=== PATIENT | female | born 1955 | race African-American/Black ===

== ENCOUNTER 2024-05-09 09:12 | Inpatient (IN) | payer OTHER ==
[2024-05-09 11:15] VITALS: BMI 64.0
[2024-05-09 12:23] LABS: BASO % 0.3 % (0-2.0); EOS % 0.3 % (0-4.5); HEMATOCRIT 28.8 % (32.4-45.2); HEMOGLOBIN 9.7 GM/dL (10.7-15.3); LYMPH % 18.7 % (8-40); MCH 39.6 pg (25.7-33.7); MCHC 33.8 g/dl (32.0-36.0); MEAN CELL VOLUME 117.3 fl (80-96); MEAN PLT VOLUME 6.5 fl (7.5-11.1); MONO % 12.9 % (3.8-10.2); NEUT % 67.8 % (42.8-82.8); PLATELET COUNT 391 10^3/uL (134-434); RBC 2.45 M/mm3 (3.60-5.2); RDW 14.9 % (11.6-15.6)
[2024-05-09] MEDS ORDERED: VANCOMYCIN 1 GRAM (PRE-DOCKED) 1,000 MG/250 ML BAG IVPB ONE (12:26)
[2024-05-09] MEDS: VANCOMYCIN 1,000 MG in DEXTROSE 5%-WATER - 250 ML IVPB ONE (12:38)
[2024-05-09 13:01] LABS: ANISOCYTOSIS 2+; MACROCYTOSIS 2+; TEAR DROP CELLS 1+
[2024-05-09 13:46] LABS: POTASSIUM 5.1 mmol/L (3.5-5.1)
[2024-05-09 13:48] LABS: ALBUMIN 2.8 g/dl (3.4-5.0); BLOOD UREA NITROGEN 8.8 mg/dL (7-18); CALCIUM 8.8 mg/dL (8.5-10.1)
[2024-05-09 13:52] LABS: CREATININE 0.6 mg/dL (0.55-1.3)
[2024-05-09 13:54] LABS: BILIRUBIN,TOTAL 0.6 mg/dL (0.2-1); TOT PROT 7.5 g/dl (6.4-8.2)
[2024-05-10] MEDS: CEFAZOLIN SODIUM 2 GM in DEXTROSE 5%-WATER 100 ML IVPB SCH (03:10)
[2024-05-10] MEDS ORDERED: ACETAMINOPHEN 325 MG TABLET (FP) PO PRN (07:40)
[2024-05-10] MEDS: KETOROLAC TROMETHAMINE 15 MG/ML VIAL IVPUSH PRN (09:07)
[2024-05-10] MEDS: GABAPENTIN 100 MG CAPSULE PO SCH (09:09)
[2024-05-10 09:56] LABS: BASO % 0.1 % (0-2.0); EOS % 0.4 % (0-4.5); HEMATOCRIT 27.5 % (32.4-45.2); HEMOGLOBIN 9.1 GM/dL (10.7-15.3); LYMPH % 18.7 % (8-40); MCH 38.6 pg (25.7-33.7); MCHC 33.2 g/dl (32.0-36.0); MEAN CELL VOLUME 116.4 fl (80-96); MEAN PLT VOLUME 6.7 fl (7.5-11.1); MONO % 15.2 % (3.8-10.2); NEUT % 65.6 % (42.8-82.8); PLATELET COUNT 366 10^3/uL (134-434); RBC 2.36 M/mm3 (3.60-5.2); RDW 14.5 % (11.6-15.6); RETICULOCYTES 0.92 % (0.5-1.5); WHITE BLOOD COUNT 9.5 K/mm3 (4.0-10.0)
[2024-05-10] MEDS: SERTRALINE HCL 50 MG TABLET (FP) PO SCH (10:12)
[2024-05-10 10:20] LABS: POTASSIUM 3.4 mmol/L (3.5-5.1)
[2024-05-10 10:28] LABS: PHOSPHOROUS 2.4 mg/dL (2.5-4.9)
[2024-05-10 10:29] LABS: BLOOD UREA NITROGEN 4.2 mg/dL (7-18); CALCIUM 8.2 mg/dL (8.5-10.1); MAGNESIUM 1.8 mg/dL (1.8-2.4)
[2024-05-10 10:30] LABS: ALBUMIN 2.6 g/dl (3.4-5.0)
[2024-05-10 10:33] LABS: CREATININE 0.4 mg/dL (0.55-1.3)
[2024-05-10 10:40] LABS: BILIRUBIN,TOTAL 0.5 mg/dL (0.2-1)
[2024-05-10 17:04] LABS: HIV INTERPRETATION NEGATIVE (NEGATIVE)
[2024-05-10] MEDS: ENOXAPARIN NA (PORCINE) 40 MG/0.4 ML DISP.SYRIN SQ SCH (18:07)
[2024-05-10] MEDS: traMADol HCL 50 MG TABLET PO PRN (21:21)
[2024-05-11] MEDS: diphenhydrAMINE HCL 25 MG CAPSULE (FP) PO ONE (02:35)
[2024-05-11 08:57] LABS: BASO % 0.2 % (0-2.0); EOS % 1.6 % (0-4.5); HEMATOCRIT 28.2 % (32.4-45.2); HEMOGLOBIN 9.5 GM/dL (10.7-15.3); LYMPH % 21.8 % (8-40); MCHC 33.6 g/dl (32.0-36.0); MEAN CELL VOLUME 116.3 fl (80-96); MEAN PLT VOLUME 6.7 fl (7.5-11.1); MONO % 11.3 % (3.8-10.2); NEUT % 65.1 % (42.8-82.8); PLATELET COUNT 376 10^3/uL (134-434); RBC 2.42 M/mm3 (3.60-5.2); RDW 14.2 % (11.6-15.6)
[2024-05-11] MEDS: ACETAMINOPHEN 325 MG TABLET (FP) PO PRN (09:10)
[2024-05-11 09:17] LABS: POTASSIUM 3.6 mmol/L (3.5-5.1)
[2024-05-11 09:19] LABS: ALBUMIN 2.6 g/dl (3.4-5.0); CALCIUM 8.4 mg/dL (8.5-10.1)
[2024-05-11 09:20] LABS: BLOOD UREA NITROGEN 6.2 mg/dL (7-18)
[2024-05-11 09:23] LABS: BILIRUBIN,TOTAL 0.6 mg/dL (0.2-1); CREATININE 0.5 mg/dL (0.55-1.3); PHOSPHOROUS 2.6 mg/dL (2.5-4.9); TOT PROT 7.2 g/dl (6.4-8.2)
[2024-05-12] MEDS: diphenhydrAMINE HCL 25 MG CAPSULE (FP) PO ONE (03:11)
[2024-05-12 08:27] LABS: POTASSIUM 3.8 mmol/L (3.5-5.1)
[2024-05-12 08:29] LABS: HEMOGLOBIN 9.4 GM/dL (10.7-15.3); RBC 2.47 M/mm3 (3.60-5.2); WHITE BLOOD COUNT 11.1 K/mm3 (4.0-10.0)
[2024-05-12 08:30] LABS: BASO % 0.1 % (0-2.0); EOS % 0.3 % (0-4.5); LYMPH % 17.6 % (8-40); MCHC 32.4 g/dl (32.0-36.0); MEAN CELL VOLUME 117.4 fl (80-96); MEAN PLT VOLUME 6.8 fl (7.5-11.1); MONO % 15.4 % (3.8-10.2); NEUT % 66.6 % (42.8-82.8); PLATELET COUNT 391 10^3/uL (134-434); RDW 14.3 % (11.6-15.6)
[2024-05-12 08:40] LABS: ALBUMIN 2.4 g/dl (3.4-5.0); BLOOD UREA NITROGEN 4.1 mg/dL (7-18); CALCIUM 8.3 mg/dL (8.5-10.1)
[2024-05-12 08:43] LABS: CREATININE 0.5 mg/dL (0.55-1.3)
[2024-05-12 08:45] LABS: BILIRUBIN,TOTAL 0.7 mg/dL (0.2-1); TOT PROT 7.2 g/dl (6.4-8.2)
[2024-05-12] MEDS ORDERED: diphenhydrAMINE HCL 50 MG CAPSULE PO PRN (08:53)
[2024-05-12] MEDS: KETOROLAC TROMETHAMINE 15 MG/ML VIAL IVPUSH ONE (10:04)
[2024-05-12] MEDS: diphenhydrAMINE HCL 25 MG CAPSULE (FP) PO PRN (10:19)
[2024-05-12] MEDS: oxyCODONE HCL 5 MG TABLET PO PRN (15:06)
[2024-05-12] MEDS: PIPERACILLIN/TAZOB 4.5 GM 4.5 GM in DEXTROSE 5%-WATER 100 ML IVPB SCH (19:07)
[2024-05-13] MEDS: ACETAMINOPHEN 1000 MG/100 ML BAG IVPB ONE (04:20)
[2024-05-13] MEDS: VANCOMYCIN/WATER FOR INJ (PEG) 1,000 MG/250 ML BAG IVPB ONE (09:09)
[2024-05-13 09:12] LABS: BASO % 0.1 % (0-2.0); EOS % 0.5 % (0-4.5); HEMATOCRIT 28.6 % (32.4-45.2); HEMOGLOBIN 9.5 GM/dL (10.7-15.3); LYMPH % 17.1 % (8-40); MCH 38.3 pg (25.7-33.7); MCHC 33.2 g/dl (32.0-36.0); MEAN CELL VOLUME 115.4 fl (80-96); MEAN PLT VOLUME 6.9 fl (7.5-11.1); MONO % 13.6 % (3.8-10.2); NEUT % 68.7 % (42.8-82.8); PLATELET COUNT 416 10^3/uL (134-434); RBC 2.48 M/mm3 (3.60-5.2); RDW 13.9 % (11.6-15.6); WHITE BLOOD COUNT 13.8 K/mm3 (4.0-10.0)
[2024-05-13] MEDS: ACETAMINOPHEN 325 MG TABLET (FP) PO PRN (10:33)
[2024-05-13] MEDS ORDERED: KETOROLAC TROMETHAMINE 10 MG TABLET PO PRN (12:50)
[2024-05-13] MEDS: KETOROLAC TROMETHAMINE 15 MG/ML VIAL IVPUSH ONE (13:21)
[2024-05-13] MEDS: FUROSEMIDE 40 MG/4 ML INJECTABLE VIAL IVPUSH SCH (13:21)
[2024-05-13 15:47] LABS: EPI CELLS >36 /uL (0-25.1); HYALINE CASTS 6 /uL (0-3.1); PH,URINE 5.5 (5.0-8.0); URINE APPEARANCE CLEAR; URINE BACTERIA 5 /uL (0-1359); URINE BILIRUBIN NEGATIVE (NEGATIVE); URINE COLOR YELLOW; URINE GLUCOSE (UA) NEGATIVE (NEGATIVE); URINE KETONE NEGATIVE (NEGATIVE); URINE LEUK ESTERASE 1+ (NEGATIVE); URINE NITRITE NEGATIVE (NEGATIVE); URINE PROTEIN TRACE (NEGATIVE); URINE RBC 23 /uL (0-23.9); URINE WBC 52 /uL (0-25.8)
[2024-05-13] MEDS: POLYETHYLENE GLYCOL (HEALTHYLAX) 3350 17 GM PACKET PO SCH (21:11)
[2024-05-13] MEDS: SENNOSIDES 8.6MG TABLET (FP) PO SCH (21:11)
[2024-05-14 10:20] LABS: BASO % 0.2 % (0-2.0); EOS % 0.9 % (0-4.5); HEMATOCRIT 26.9 % (32.4-45.2); HEMOGLOBIN 8.9 GM/dL (10.7-15.3); LYMPH % 12.9 % (8-40); MCH 38.4 pg (25.7-33.7); MCHC 33.2 g/dl (32.0-36.0); MEAN CELL VOLUME 115.6 fl (80-96); MEAN PLT VOLUME 7.1 fl (7.5-11.1); MONO % 13.3 % (3.8-10.2); NEUT % 72.7 % (42.8-82.8); PLATELET COUNT 394 10^3/uL (134-434); RBC 2.33 M/mm3 (3.60-5.2); RDW 13.9 % (11.6-15.6)
[2024-05-14] MEDS: IBUPROFEN 400 MG TABLET (FP) PO PRN (17:32)
[2024-05-14 20:02] LABS: ANISOCYTOSIS 2+; MACROCYTOSIS 2+
[2024-05-15 09:19] LABS: BASO % 0.1 % (0-2.0); EOS % 1.8 % (0-4.5); LYMPH % 14.2 % (8-40); MCH 37.8 pg (25.7-33.7); MCHC 32.2 g/dl (32.0-36.0); MEAN CELL VOLUME 117.5 fl (80-96); NEUT % 69.9 % (42.8-82.8); PLATELET COUNT 373 10^3/uL (134-434); RBC 2.38 M/mm3 (3.60-5.2); WHITE BLOOD COUNT 12.4 K/mm3 (4.0-10.0)
[2024-05-15] MEDS ORDERED: HYDROCORTISONE 0.5% TOPICAL CREAM 30 GM TUBE TP PRN (09:23)
[2024-05-15 09:45] LABS: POTASSIUM 4.2 mmol/L (3.5-5.1)
[2024-05-15 09:55] LABS: ALBUMIN 2.1 g/dl (3.4-5.0); CALCIUM 8.4 mg/dL (8.5-10.1)
[2024-05-15 09:57] LABS: CREATININE 0.5 mg/dL (0.55-1.3)
[2024-05-15 09:59] LABS: BILIRUBIN,TOTAL 0.9 mg/dL (0.2-1); TOT PROT 7.4 g/dl (6.4-8.2)
[2024-05-15 10:22] LABS: ERYTHROCYTE SEDIMENTATION RATE > 120 mm/hr (0-30)
[2024-05-15] MEDS: HYDROmorphone HCL CARPU-JECT 2 MG/1 ML DISP.SYRIN IVPB ONE (11:22)
[2024-05-16 10:20] LABS: BASO % 0.2 % (0-2.0); EOS % 0.8 % (0-4.5); HEMATOCRIT 26.7 % (32.4-45.2); HEMOGLOBIN 8.7 GM/dL (10.7-15.3); MCH 38.5 pg (25.7-33.7); MCHC 32.5 g/dl (32.0-36.0); MEAN CELL VOLUME 118.3 fl (80-96); MEAN PLT VOLUME 7.2 fl (7.5-11.1); MONO % 17.1 % (3.8-10.2); NEUT % 66.9 % (42.8-82.8); PLATELET COUNT 369 10^3/uL (134-434); RBC 2.26 M/mm3 (3.60-5.2); RDW 13.8 % (11.6-15.6); WHITE BLOOD COUNT 10.3 K/mm3 (4.0-10.0)
[2024-05-16 10:45] LABS: POTASSIUM 4.2 mmol/L (3.5-5.1)
[2024-05-16 10:54] LABS: ALBUMIN 2.1 g/dl (3.4-5.0); CALCIUM 8.6 mg/dL (8.5-10.1)
[2024-05-16 10:55] LABS: BLOOD UREA NITROGEN 5.6 mg/dL (7-18); MAGNESIUM 2.1 mg/dL (1.8-2.4)
[2024-05-16 10:58] LABS: CREATININE 0.6 mg/dL (0.55-1.3); PHOSPHOROUS 2.7 mg/dL (2.5-4.9); TOT PROT 7.4 g/dl (6.4-8.2)
[2024-05-16 10:59] LABS: BILIRUBIN,TOTAL 0.9 mg/dL (0.2-1)
[2024-05-16] MEDS ORDERED: ACETAMINOPHEN 1000 MG/100 ML BAG IVPB SCH (11:45)
[2024-05-16 13:24] LABS: ANISOCYTOSIS 2+; MACROCYTOSIS 2+
[2024-05-16] MEDS ORDERED: IBUPROFEN 400 MG TABLET (FP) PO SCH ×2 (15:45→16:45)
[2024-05-16] MEDS: ACETAMINOPHEN 1000 MG/100 ML BAG IVPB SCH (17:40)
[2024-05-16] MEDS: IBUPROFEN 600 MG TABLET (FP) PO SCH (22:55)
[2024-05-16] MEDS: ENOXAPARIN NA (PORCINE) 40 MG/0.4 ML DISP.SYRIN SQ SCH (22:55)
[2024-05-17 09:54] LABS: BASO % 0.2 % (0-2.0); EOS % 1.5 % (0-4.5); HEMATOCRIT 25.9 % (32.4-45.2); HEMOGLOBIN 8.5 GM/dL (10.7-15.3); LYMPH % 14.9 % (8-40); MCH 37.9 pg (25.7-33.7); MCHC 32.9 g/dl (32.0-36.0); MEAN CELL VOLUME 115.4 fl (80-96); MEAN PLT VOLUME 6.9 fl (7.5-11.1); MONO % 12.2 % (3.8-10.2); NEUT % 71.2 % (42.8-82.8); PLATELET COUNT 335 10^3/uL (134-434); RBC 2.25 M/mm3 (3.60-5.2); RDW 14.1 % (11.6-15.6); WHITE BLOOD COUNT 11.2 K/mm3 (4.0-10.0)
[2024-05-17 10:12] LABS: CALCIUM 8.5 mg/dL (8.5-10.1); POTASSIUM 3.8 mmol/L (3.5-5.1)
[2024-05-17 10:14] LABS: ALBUMIN 2.2 g/dl (3.4-5.0); BLOOD UREA NITROGEN 4.6 mg/dL (7-18); MAGNESIUM 2.2 mg/dL (1.8-2.4)
[2024-05-17 10:17] LABS: CREATININE 0.5 mg/dL (0.55-1.3); PHOSPHOROUS 3.3 mg/dL (2.5-4.9)
[2024-05-17 10:18] LABS: BILIRUBIN,TOTAL 0.7 mg/dL (0.2-1); TOT PROT 7.1 g/dl (6.4-8.2)
[2024-05-17 13:16] LABS: HIV INTERPRETATION NEGATIVE (NEGATIVE)
[2024-05-17 20:37] VITALS: RESP 18
[2024-05-18] MEDS: oxyCODONE HCL 5 MG TABLET PO PRN (01:10)
[2024-05-18 07:10] LABS: HOMOCYSTINE-PLASMA OR SERUM 8.9 umol/L (0.0-17.2)
[2024-05-18 09:34] LABS: BASO % 0.3 % (0-2.0); EOS % 2.3 % (0-4.5); HEMATOCRIT 25.4 % (32.4-45.2); HEMOGLOBIN 8.7 GM/dL (10.7-15.3); LYMPH % 16.5 % (8-40); MCH 39.3 pg (25.7-33.7); MCHC 34.2 g/dl (32.0-36.0); MEAN CELL VOLUME 115.1 fl (80-96); MEAN PLT VOLUME 7.2 fl (7.5-11.1); MONO % 11.9 % (3.8-10.2); PLATELET COUNT 334 10^3/uL (134-434); RDW 13.9 % (11.6-15.6); WHITE BLOOD COUNT 9.5 K/mm3 (4.0-10.0)
[2024-05-18 09:46] LABS: POTASSIUM 3.7 mmol/L (3.5-5.1)
[2024-05-18 09:59] LABS: CALCIUM 8.4 mg/dL (8.5-10.1)
[2024-05-18 10:02] LABS: ALBUMIN 2.1 g/dl (3.4-5.0); BLOOD UREA NITROGEN 3.9 mg/dL (7-18); CREATININE 0.5 mg/dL (0.55-1.3)
[2024-05-18 10:05] LABS: BILIRUBIN,TOTAL 0.6 mg/dL (0.2-1); TOT PROT 7.2 g/dl (6.4-8.2)
[2024-05-18] MEDS: FUROSEMIDE 40 MG/4 ML INJECTABLE VIAL IVPUSH ONE (10:05)
[2024-05-18] MEDS ORDERED: PIPERACILLIN/TAZOB 4.5 GM 4.5 GM in DEXTROSE 5%-WATER 100 ML IVPB SCH (21:00)
[2024-05-18] MEDS: PIPERACILLIN/TAZOB 4.5 GM 4.5 GM in DEXTROSE 5%-WATER 100 ML IVPB SCH (22:10)
[2024-05-19] MEDS: FUROSEMIDE 40 MG/4 ML INJECTABLE VIAL IVPUSH SCH (10:24)
[2024-05-19 10:44] LABS: HEMATOCRIT 27.5 % (32.4-45.2); HEMOGLOBIN 9.2 GM/dL (10.7-15.3); MCH 38.4 pg (25.7-33.7); MCHC 33.6 g/dl (32.0-36.0); MEAN CELL VOLUME 114.5 fl (80-96); MEAN PLT VOLUME 7.4 fl (7.5-11.1); PLATELET COUNT 363 10^3/uL (134-434); RDW 14.4 % (11.6-15.6); WHITE BLOOD COUNT 8.1 K/mm3 (4.0-10.0)
[2024-05-19 11:16] LABS: POTASSIUM 3.7 mmol/L (3.5-5.1)
[2024-05-19 11:24] LABS: ALBUMIN 2.2 g/dl (3.4-5.0); BLOOD UREA NITROGEN 5.4 mg/dL (7-18); CREATININE 0.5 mg/dL (0.55-1.3)
[2024-05-19 11:25] LABS: BILIRUBIN,TOTAL 0.6 mg/dL (0.2-1)
[2024-05-19 11:26] LABS: CALCIUM 8.7 mg/dL (8.5-10.1)
[2024-05-19 11:33] LABS: TOT PROT 7.5 g/dl (6.4-8.2)
[2024-05-19 13:05] LABS: ANISOCYTOSIS 0; MACROCYTOSIS 2+
[2024-05-20 10:36] LABS: BASO % 0.5 % (0-2.0); EOS % 3.4 % (0-4.5); HEMATOCRIT 27.5 % (32.4-45.2); HEMOGLOBIN 9.5 GM/dL (10.7-15.3); LYMPH % 15.4 % (8-40); MCHC 34.5 g/dl (32.0-36.0); MEAN CELL VOLUME 115.9 fl (80-96); MEAN PLT VOLUME 7.3 fl (7.5-11.1); MONO % 10.7 % (3.8-10.2); PLATELET COUNT 332 10^3/uL (134-434); RBC 2.37 M/mm3 (3.60-5.2); RDW 14.4 % (11.6-15.6); WHITE BLOOD COUNT 6.9 K/mm3 (4.0-10.0)
[2024-05-20 10:44] LABS: POTASSIUM 3.4 mmol/L (3.5-5.1)
[2024-05-20 11:01] LABS: CALCIUM 8.6 mg/dL (8.5-10.1); CREATININE 0.6 mg/dL (0.55-1.3)
[2024-05-20 11:02] LABS: ALBUMIN 2.2 g/dl (3.4-5.0); BLOOD UREA NITROGEN 6.8 mg/dL (7-18); TOT PROT 7.6 g/dl (6.4-8.2)
[2024-05-20 11:03] LABS: BILIRUBIN,TOTAL 0.7 mg/dL (0.2-1)
[2024-05-20] MEDS: POTASSIUM CHLORIDE TABS 20 MEQ TABLET.ER (FP) PO ONE (13:15)
[2024-05-20] MEDS: FUROSEMIDE 40 MG/4 ML INJECTABLE VIAL IVPUSH SCH (13:20)
[2024-05-20] MEDS: MELATONIN 5 MG TABLETS PO ONE (23:09)
[2024-05-21 10:02] LABS: BASO % 0.3 % (0-2.0); EOS % 2.5 % (0-4.5); HEMATOCRIT 28.6 % (32.4-45.2); HEMOGLOBIN 9.7 GM/dL (10.7-15.3); LYMPH % 17.3 % (8-40); MCH 38.5 pg (25.7-33.7); MCHC 33.8 g/dl (32.0-36.0); MEAN CELL VOLUME 113.7 fl (80-96); MEAN PLT VOLUME 7.5 fl (7.5-11.1); MONO % 15.2 % (3.8-10.2); NEUT % 64.7 % (42.8-82.8); PLATELET COUNT 401 10^3/uL (134-434); RBC 2.52 M/mm3 (3.60-5.2); RDW 14.6 % (11.6-15.6); WHITE BLOOD COUNT 7.3 K/mm3 (4.0-10.0)
[2024-05-21 10:14] LABS: POTASSIUM 3.6 mmol/L (3.5-5.1)
[2024-05-21 10:18] LABS: BLOOD UREA NITROGEN 7.1 mg/dL (7-18); CALCIUM 8.8 mg/dL (8.5-10.1)
[2024-05-21 10:22] LABS: CREATININE 0.6 mg/dL (0.55-1.3)
[2024-05-22 09:29] LABS: HEMATOCRIT 29.6 % (32.4-45.2); MCH 38.3 pg (25.7-33.7); MCHC 33.9 g/dl (32.0-36.0); MEAN CELL VOLUME 112.9 fl (80-96); MEAN PLT VOLUME 7.5 fl (7.5-11.1); PLATELET COUNT 398 10^3/uL (134-434); RBC 2.62 M/mm3 (3.60-5.2); RDW 14.4 % (11.6-15.6); WHITE BLOOD COUNT 7.7 K/mm3 (4.0-10.0)
[2024-05-22] MEDS: ONDANSETRON 4 MG/2 ML VIAL IVPUSH PRN (10:09)
[2024-05-22] MEDS ORDERED: MAG HYDROX/AL HYDROX/SIMETH 30 ML UNIT-DOSE CUP PO PRN (10:25)
[2024-05-22] MEDS: PANTOPRAZOLE 40 MG TABLET PO SCH (12:07)
[2024-05-23] MEDS: DICLOFENAC SODIUM 25 MG TABLET.DR PO SCH (10:34)
[2024-05-23 10:41] VITALS: PULSE 89
[2024-05-23] MEDS: oxyCODONE HCL 5 MG TABLET PO PRN (11:26)
[2024-05-23 14:51] VITALS: BP 110/69; TEMP 98.4
[2024-05-24 17:09] LABS: FREE KAPPA,SERUM 60.9 mg/L (3.3-19.4)
== END 2024-05-23 18:20 | DRG 603 ==
LOC: JER 09:12 → JERBED 10:14 → J6S 05-10 00:29 → OBSVTOIN 05-10 10:14 → J6S 05-12 19:25
PROVIDERS: ADMIT Internal Medicine; ATTEND Internal Medicine
DX: L03.115 Cellulitis of right lower limb (principal); Z68.43 Body mass index [BMI] 50.0-59.9, adult; I89.0 Lymphedema, not elsewhere classified; K59.00 Constipation, unspecified; D72.829 Elevated white blood cell count, unspecified; E66.01 Morbid (severe) obesity due to excess calories; E87.6 Hypokalemia; D53.9 Nutritional anemia, unspecified; L29.9 Pruritus, unspecified
CPT/HCPCS: 36415; 73701-TC-RT; 80048; 80053; 81003; 82525; 82550; 82607; 82728; 82746; 83090; 83540; 83550; 83735; 83883; 83921; 84100; 84155; 84165; 84436; 84443; 84480; 84630; 85025; 85027; 85045; 85651; 86140; 87040; 87070; 87077; 87081; 87186; 87205; 87389; 87635; 88300-TC; 93005; 93010; 93971-TC; 97116-GP; 97162-GP; 99285-25; G0378; J0131

== ENCOUNTER 2024-07-19 15:30 | Emergency (ER) | payer OTHER ==
[2024-07-19 16:13] VITALS: RESP 18; BMI 27.3
[2024-07-19] MEDS ORDERED: ALPRAZolam 1 MG TABLET PO PRN (17:44)
[2024-07-19] MEDS ORDERED: ALPRAZolam 0.25 MG TABLET ONE (18:44)
[2024-07-19] MEDS: ALPRAZolam 1 MG TABLET PO ONE (18:50)
[2024-07-20 02:02] VITALS: BP 106/72; PULSE 93; TEMP 97.5
== END 2024-07-20 02:02 | disposition home or self-care (01) ==
LOC: JER 15:30
DX: M54.50 Low back pain, unspecified (principal)
CPT/HCPCS: 72100-TC-FY; 99283-25